=== PATIENT | female | born 1945 ===

== ENCOUNTER 2018-09-16 11:06 | Day surgery (SDC) | payer MEDICARE, MEDICAID ==
[2017-12-18 11:29] VITALS: BMI 47.4
[~2018-09-16 11:06] MED LIST: Lactated Ringer's 1,000 ML IV SCH
[2018-09-16] MEDS ORDERED: Propofol 10 mg/ml Inj (20 ML) ONE (11:48)
[2018-09-16 13:29] VITALS: O2SAT 95
[2018-09-16 15:12] VITALS: BP 114/79; PULSE 78; RESP 16; TEMP 98.4
== END 2018-09-16 14:20 ==
LOC: ENDO 11:06
PROVIDERS: ATTEND Internal Medicine Gastroenterology
DX: D12.2 Benign neoplasm of ascending colon (principal); K57.30 Diverticulosis of large intestine without perforation or abscess without bleeding; K64.8 Other hemorrhoids; R19.7 Diarrhea, unspecified
CPT/HCPCS: 45381; 45385; 88305; J2001; J2704; J7040; J7120

== ENCOUNTER 2018-10-12 09:15 | Outpatient (CLI) | payer MEDICARE, MEDICAID | END 2018-10-12 09:16 | disposition home or self-care (01) | LOC: RAD 09:15 ==

== ENCOUNTER 2018-10-28 08:50 | Day surgery (SDC) | payer MEDICARE, MEDICAID ==
[2018-10-19 13:05] VITALS: BMI 48.1
[2018-10-28] MEDS ORDERED: Propofol 10 mg/ml Inj (20 ML) ONE (11:29)
[2018-10-28 11:59] VITALS: O2SAT 97
[2018-10-28 14:32] VITALS: BP 119/73; PULSE 91; RESP 18; TEMP 97.5
== END 2018-10-28 14:20 | disposition home or self-care (01) ==
LOC: ENDO 08:50
PROVIDERS: ATTEND Internal Medicine Gastroenterology
DX: K22.2 Esophageal obstruction (principal); K29.50 Unspecified chronic gastritis without bleeding; B96.81 Helicobacter pylori [H. pylori] as the cause of diseases classified elsewhere; K44.9 Diaphragmatic hernia without obstruction or gangrene; K21.0 Gastro-esophageal reflux disease with esophagitis; R19.7 Diarrhea, unspecified; R13.10 Dysphagia, unspecified
CPT/HCPCS: 43239; 88305; 88312; 88342; J2001; J2704; J7040